=== PATIENT | female | born 1975 | race Caucasian/White ===

== ENCOUNTER 2022-01-26 02:30 | Emergency (ER) | payer OTHER ==
[2022-01-26] MEDS ORDERED: LIDOCAINE 5% TOPICAL PATCH TP ONE (02:52)
[2022-01-26] MEDS ORDERED: diazePAM 5 MG TABLET PO ONE (02:52)
[2022-01-26 02:58] VITALS: BP 132/95; PULSE 70; RESP 18; TEMP 98.1; BMI 24.3
[2022-01-26] MEDS ORDERED: diazePAM 5 MG TABLET ONE (03:00)
[2022-01-26] MEDS ORDERED: LIDOCAINE 5% TOPICAL PATCH ONE (03:00)
[2022-01-26] MEDS ORDERED: LIDOCAINE PATCH REMOVAL MC SCH (22:00)
== END 2022-01-26 03:08 | disposition home or self-care (01) ==
LOC: FER 02:30
DX: S16.1XXA Strain of muscle, fascia and tendon at neck level, initial encounter (principal); Y99.9 Unspecified external cause status
CPT/HCPCS: 99283-25